=== PATIENT | female | born 1970 | race Caucasian/White ===

== ENCOUNTER 2019-01-26 08:52 | Day surgery (SDC) | payer OTHER ==
--- NOTE | 2019-01-23 10:51 | HP ---
Admitting History and Physical - Primary Care Physician PCP: Quincy Cosme - Admission Chief Complaint: left breast mass History of Present Illness: Patient is a 48 yo female with a family h/o breast cancer, who was noted to have inferior medial left breast calcifications on screening mammo (12/15) for which a stereotactic core bx was recommended. 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 The patient is now presenting for a left breast WE with NL. History Source: Patient Limitations to Obtaining History: No Limitations - Past Medical History Cardiovascular: Yes: Murmur, Other (MVP) Endocrine: Yes: Other (prediabetic ) - Smoking History Smoking history: Never smoked Have you smoked in the past 12 months: No - Alcohol/Substance Use Hx Alcohol Use: Yes (social) Home Medications - Allergies Allergies/Adverse Reactions: Allergies Allergy/AdvReac Type Severity Reaction Status Date / Time No Known Allergies Allergy Verified 12/16/18 15:51 Family Medical History Family Hx Cancer: Grandmother (maternal) (lung cancer), Grandfather (paternal) ( melanoma), Mother (breast cancer at 45) Review of Systems - Review of Systems Constitutional: reports: No Symptoms Cardiovascular: reports: No Symptoms Respiratory: reports: No Symptoms Breasts: reports: No Symptoms Reported Physical Examination Constitutional: Yes: Well Nourished, Calm Breast(s): Yes: Other (The patient has B-cup breasts without any suspicious palpable masses or adenopathy noted bilaterally.) Problem List - Problems (1) Breast mass, left Code(s): N63.20 - UNSPECIFIED LUMP IN THE LEFT BREAST, UNSPECIFIED QUADRANT Assessment/Plan Plan Left breast WE with NL
[2019-01-25 15:06] VITALS: BMI 22.8
[2019-01-26 10:03] VITALS: TEMP 98.6
[2019-01-26] MEDS ORDERED: BSS (NA/CA/MG/K) BALANCED SALT SOLUTION OPHTH SOLN 15 ML BOTTLE ONE (13:10)
[2019-01-26] MEDS ORDERED: MIDAZOLAM HCL 2 MG/2 ML SINGLE DOSE VIAL ONE ×2 (13:12→13:25)
[2019-01-26] MEDS ORDERED: PROPOFOL 20 ML ONE (13:12)
[2019-01-26] MEDS ORDERED: SUCCINYLCHOLINE CHLORIDE 200 MG/10 ML SYRINGE ONE (13:12)
[2019-01-26] MEDS ORDERED: BUPIVACAINE HCL 0.25% 125 MG/50 ML VIAL ONE (13:27)
[2019-01-26] MEDS ORDERED: LIDOCAINE HCL 1%, 10 MG/ML (20ML VIAL) ONE (13:28)
[2019-01-26] MEDS ORDERED: ONDANSETRON 4 MG/2 ML VIAL ONE (13:31)
[2019-01-26] MEDS ORDERED: DEXAMETHASONE SOD PHOSPHATE 4 MG/1 ML VIAL ONE (13:31)
[2019-01-26] MEDS ORDERED: LIDOCAINE 1% P/F 10 MG/ML VIAL INF ONE (13:45)
[2019-01-26] MEDS ORDERED: BUPIVACAINE HCL/PF 0.25% (2.5MG/ML) 10 ML VIAL IJ ONE (14:05)
[2019-01-26] MEDS ORDERED: KETOROLAC TROMETHAMINE 30 MG/1 ML VIAL ONE (14:12)
[2019-01-26] MEDS ORDERED: ONDANSETRON 4 MG/2 ML VIAL IVPUSH PRN (14:21)
[2019-01-26] MEDS ORDERED: KETOROLAC TROMETHAMINE 30 MG/1 ML VIAL IVPUSH PRN (14:21)
[2019-01-26] MEDS ORDERED: DEXTROSE 5%-0.45% SALINE 1,000 ML IV SCH (14:30)
[2019-01-26] MEDS ORDERED: ACETAMINOPHEN 500 MG TABLET (FP) ONE (14:38)
[2019-01-26] MEDS ORDERED: oxyCODONE HCL 5 MG TABLET PO PRN (14:58)
[2019-01-26] MEDS ORDERED: ACETAMINOPHEN 325 MG TABLET (FP) PO ONE (14:59)
[2019-01-26] MEDS ORDERED: LACTATED RINGERS SOLUTION 1,000 ML IV SCH (15:00)
[2019-01-26 15:29] VITALS: BP 116/74; PULSE 67
--- NOTE | 2019-01-26 20:04 | OP ---
DATE OF OPERATION: 01/26/2019 PREOPERATIVE DIAGNOSIS: Left breast mass with radial sclerosing lesion. POSTOPERATIVE DIAGNOSIS: Left breast mass with radial sclerosing lesion. PROCEDURE: Left breast wide excision with mammographic needle localization. ANESTHESIA: Local with IV sedation. SURGEON: Betsy Cosme MD. DISPLAY CARVER: GUANAKO Syed. COMPLICATIONS: There were no complications. DESCRIPTION OF PROCEDURE: Briefly, the patient is a 48-year-old G3, P2 premenopausal white female with a strong family history with her mother who had bilateral breast cancer and paternal grandfather who had melanoma. The patient herself tested BRCA negative and also underwent panel testing which was negative. She has an increased Evelia risk of breast cancer with a history of a left breast biopsy in 2017, which was benign. 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 Slide review showed no atypia. She was given the option of close followup and wanted to have this fully excised. The patient is brought in through ambulatory surgery on January 26, 2019. She first underwent a mammographic needle localization with a clip in the lower inner aspect of the left breast. She was then brought into the holding area. In the holding area, site verification was made, and informed consent was obtained. She was brought into the operating room and laid on the OR table in a supine position. Venodynes were placed on the lower extremities prior to induction. She received IV sedation and no antibiotics were given, given the small nature of the excision. The left breast was sterilely prepped and draped in the usual fashion with the wire prepped in the field. 1% lidocaine was given around the needle localization site toward the lower inner aspect to the left breast. Incision was made in the inframammary fold of the left breast in the lower inner quadrant. Dissection was undertaken around the needle localization. The breast tissue was completely removed around the wire with the wire intact within the middle of the specimen. The specimen is oriented with a long lateral, short superior suture and specimen radiographs show removal of the clip in question. The specimen was sent in formalin to pathology. I did take another separate anterior margin, to try to remove a separate clip that had been in the patient, however could not remove that clip, and it was not necessary since this was not the area of concern. Hemostasis was achieved, and the separate specimen was sent as anterior margin, placed in formalin as separate specimen, sent to pathology. Hemostasis was achieved, and the wound was copiously irrigated with warm, sterile saline. The breast parenchyma was then reapproximated using 2-0 plain suture. The skin was closed using interrupted 3-0 deep dermal Vicryl suture and a running 4- 0 subcuticular Biosyn suture. Mastisol and Steri-Strips were applied over the wound to compress the dressing placed over this. The patient was awake and alert at the end of the procedure and brought back to ambulatory surgery in stable condition. She will be discharged home the same day once discharge criteria are met. She is to follow up in the office in 1 week for formal wound pathology check. All sponge and needle counts are correct at the end of the case, and estimated blood loss was minimal. BETSY COSME M.D. [id number] MTDD
--- NOTE | 2019-01-30 14:20 | PATH ---
Surgical Pathology Report Patient Name: BIJAN TREVIÑO [facility] Rec. #: [id number] /Age/Gender: 1970 (Age: 48) / F Account: [id number] Location: [facility] AMBUL[facility] Taken: 01/26/2019 Received: 01/26/2019 Reported: 01/30/2019 Physicians: Quincy Cosme M.D. Specimen(s) Received A: LEFT BREAST WIDE EXCISION B: LEFT BREAST ANTERIOR MARGIN Clinical History Radial sclerosing lesion Ultrasound findings: Probably benign Final Diagnosis A. BREAST, LEFT, WIDE EXCISION: BENIGN BREAST TISSUE SHOWING FIBROCYSTIC CHANGES INCLUDING CYSTIC APOCRINE METAPLASIA, USUAL DUCTAL HYPERPLASIA (UDH) AND COLUMNAR CELL CHANGE. NO RESIDUAL RADIAL SCAR IS IDENTIFIED. (SEE NOTE). Note: See also prior left breast core biopsy report from outside institution ([facility], [place], [place]: case # [id number]; our slide review ). B. BREAST, LEFT, ANTERIOR MARGIN, EXCISION: BENIGN BREAST TISSUE SHOWING FIBROCYSTIC CHANGES INCLUDING CYSTIC APOCRINE METAPLASIA AND USUAL DUCTAL HYPERPLASIA (UDH). Electronically Signed Pili Diaz M.D. Gross Description A. Received in formalin labeled "left breast wide excision," is a 2.5 x 2.3 x 1.4 cm portion of fibroadipose tissue with a needle localization wire separately received within the same container which appears to have detached from the specimen. There is a short suture marking the superior aspect and a long suture marking the lateral aspect of the specimen, per the surgeon. There is no skin present. The specimen is inked as follows: Superior and lateral blue; medial yellow; inferior green; anterior right; deep black. The specimen is serially sectioned from medial to lateral. Sectioning reveals a 0.5 x 0.5 x 0.3 cm firm focus of fibrous tissue. The focus is 0.3 cm from the anterior soft tissue margin and 0.3 cm from the lateral margin. The specimen is entirely and sequentially submitted in 6 cassettes with the medial margin in cassette 1, the lateral margin in cassettes 6 and the firm focus in cassettes 4-5. Time to formalin fixation: 10 minutes Total formalin fixation time: Approximately 28 hours. B. Received in formalin labeled "left breast anterior margin," is a 1.7 x 1.4 x 0.7 cm unoriented portion of fibroadipose tissue. One side is inked blue and the opposing side is inked red. The specimen is serially sectioned and entirely submitted in 2 cassettes. 01/27/201901/27/2019
== END 2019-01-26 15:28 | disposition home or self-care (01) ==
LOC: FASU 08:52
PROVIDERS: ATTEND Surgery Surgical Oncology
PROC: 0HBU0ZX Excision of Left Breast, Open Approach, Diagnostic (ICD-10-PCS; principal; 2019-01-26 13:45)
DX: N60.12 Diffuse cystic mastopathy of left breast (principal); N60.82 Other benign mammary dysplasias of left breast; N64.89 Other specified disorders of breast; N63.24 Unspecified lump in the left breast, lower inner quadrant; Z80.3 Family history of malignant neoplasm of breast; R01.1 Cardiac murmur, unspecified; I34.1 Nonrheumatic mitral (valve) prolapse; R73.03 Prediabetes
CPT/HCPCS: 19281; 76098-TC-FY; 84703; 88307-TC